=== PATIENT | male | born 1955 | race Caucasian/White ===

== ENCOUNTER 2019-07-08 16:52 | Emergency (ER) | payer OTHER ==
--- OUTSIDE RECORDS SUMMARY | 2019-07-08 16:54 | XMS REPORT ---
:1955 Author Organization eClinicalWorks Care Team Providers Name Role Phone Rangel, Na Provider Role Unavailable Allergies, Adverse Reactions, Alerts Substance Reaction Event Type codeine Info Not Available Drug Allergy Problems Problem Type Condition Code Onset Dates Condition Status Problem Anxiety F41.9 Active Problem History of kidney stones Z87.442 Active Problem Over weight E66.3 Active Problem Benign paroxysmal positional H81.11 Active vertigo of right ear Assessment HTN (hypertension) I10 Active Problem Decreased hearing of both ears H91.93 Active Assessment Pure hypercholesterolemia E78.00 Active Assessment Paroxysmal a-fib I48.0 Active Problem Impacted cerumen, left ear H61.22 Active Problem Depression with anxiety F41.8 Active Problem Screening PSA (prostate specific Z12.5 Active antigen) Problem Irritable bowel syndrome with K58.0 Active diarrhea Problem Blood tests for routine general Z00.00 Active physical examination Problem Pure hypercholesterolemia E78.00 Active Problem Paroxysmal a-fib I48.0 Active Assessment Depression with anxiety F41.8 Active Problem Snoring R06.83 Active Problem Fatigue R53.83 Active Problem 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 70461251193 50 MG Orally Active 1 tablet as Once a day needed Betapace [facility] 36307574761 80 MG Active TAKE 1 TABLET BY MOUTH TWICE A DAY Flomax [facility] 69671079395 0.4 MG Orally Active 1 capsule Once a day Lexapro [facility] 69877181947 10 MG Orally Active 1 tablet Once a day Simvastatin [facility] 25575994679 40 MG Active TAKE 1 TABLET BY MOUTH EVERY DAY Xarelto [facility] 45643433318 20 MG Active TAKE 1 TABLET BY MOUTH EVERY DAY Lexapro [facility] 84655607117 20 MG Orally Active 1 tablet Once a day Lexapro [facility] 48007323197 10 MG Active TAKE 1 TABLET BY MOUTH EVERY DAY Betapace [facility] 63347852459 80 MG Active TAKE 1 TABLET BY MOUTH TWICE A DAY Results No Known Results Summary Purpose eClinicalWorks Submission
--- OUTSIDE RECORDS SUMMARY | 2019-07-08 16:54 | XMS REPORT ---
:1955 Author Organization eClinicalWorks Care Team Providers Name Role Phone Rangel, Na Provider Role Unavailable Allergies, Adverse Reactions, Alerts Substance Reaction Event Type codeine Info Not Available Drug Allergy Problems Problem Type Condition Code Onset Dates Condition Status Assessment Needs flu shot Z23 Active Assessment Screening PSA (prostate specific Z12.5 Active antigen) Assessment Anesthesia of skin R20.0 Active Assessment Paresthesia of skin R20.2 Active Assessment Paroxysmal a-fib I48.0 Active Problem Anxiety F41.9 Active Assessment Pure hypercholesterolemia E78.00 Active Problem Over weight E66.3 Active Assessment HTN (hypertension) I10 Active Problem History of kidney stones Z87.442 Active Problem Depression with anxiety F41.8 Active Problem Screening PSA (prostate specific Z12.5 Active antigen) Problem Adult general medical examination Z00.00 Active Problem Benign paroxysmal positional H81.11 Active vertigo of right ear Assessment Adult general medical examination Z00.00 Active Problem Paresthesia of skin R20.2 Active Assessment Depression with anxiety F41.8 Active Problem Irritable bowel syndrome with K58.0 Active diarrhea Problem Blood tests for routine general Z00.00 Active physical examination Problem Impacted cerumen, left ear H61.22 Active Problem Decreased hearing of both ears H91.93 Active Problem Personal history of other malignant Z85.038 Active neoplasm of large intestine Problem Other hyperlipidemia E78.4 Active Problem Pure hypercholesterolemia E78.00 Active Problem Paroxysmal a-fib I48.0 Active Problem HTN (hypertension) I10 Active Problem Sexual dysfunction R37 Active Problem Snoring R06.83 Active Problem Fatigue R53.83 Active Medications Medication Code Code Instructions Start End Status Dosage System Date Date Viagra [facility] 73169377083 50 MG Orally Active 1 tablet Once a day as needed Flomax [facility] 19677538131 0.4 MG Orally Active 1 capsule Once a day Betapace [facility] 71435611070 80 MG Inactive TAKE 1 TABLET BY MOUTH TWICE A DAY Lexapro [facility] 00242437605 10 MG Active TAKE 1 TABLET BY MOUTH EVERY DAY Xarelto [facility] 05249045436 20 MG Active TAKE 1 TABLET BY MOUTH EVERY DAY Lexapro [facility] 28327099274 10 MG Orally Active 1 tablet Once a day Simvastatin [facility] 15175022295 40 MG Active TAKE 1 TABLET BY MOUTH EVERY DAY Results No Known Results Immunizations Vaccine Administration Date Afluria single dose Mar 16, 2019 Summary Purpose eClinicalWorks Submission
[2019-07-08 17:29] LABS: Absolute Lymphocytes (CBC) 3.1 K/uL (0.7-4.9); Hematocrit 43.8 % (39.6-49.0); Lymphocytes % 30.6 % (15.3-44.8); MPV 7.7 fL (7.6-11.3); RBC Red Blood Cell Count 4.83 M/uL (4.33-5.43)
[2019-07-08 17:31] LABS: Protime INR 1.09
--- NOTE | 2019-07-08 17:32 | RAD REPORT ---
EXAM DESCRIPTION: RAD - Chest Single View - 07/08/2019 5:25 pm CLINICAL HISTORY: PALPITATIONS Chest pain. COMPARISON: Abdomen 1 View (KUB) dated 05/10/2017; Chest Single View dated 12/30/2015 FINDINGS: Portable technique limits examination quality. The lungs are grossly clear. The heart is normal in size. No displaced fractures. IMPRESSION: No acute intrathoracic process suspected.
[2019-07-08] MEDS ORDERED: MIDAZOLAM HCL 2 MG/2 ML INJ ONE (17:33)
[2019-07-08] MEDS ORDERED: FENTANYL CITR 100 MCG/2 ML ONE (17:33)
[2019-07-08] MEDS ORDERED: NA CHLORIDE 0.9% 1,000 ML ONE (17:38)
[2019-07-08 17:55] LABS: ALT/SGPT 30 U/L (12-78); AST/SGOT 23 U/L (15-37); Albumin 3.8 g/dL (3.4-5.0); Alkaline Phosphatase 93 U/L (45-117); BUN Blood Urea Nitrogen 18 mg/dL (7-18); Bicarbonate 25 mmol/L (21-32); Bilirubin Direct 0.1 mg/dL (0-0.2); Bilirubin Total 0.4 mg/dL (0.2-1.0); Glucose Level 139 mg/dL (74-106); Magnesium 2.1 mg/dL (1.8-2.4); NT PRO-BNP 232 pg/mL (<125); Potassium 3.7 mmol/L (3.5-5.1); Protein, Total 7.2 g/dL (6.4-8.2); Sodium Level 141 mmol/L (136-145); Troponin (Emerg Dept Use Only) < 0.02 ng/mL (0.0-0.045)
[2019-07-08] MEDS ORDERED: ENOXAPARIN 100 MG/ML SYR SQ ONE (18:06)
--- NOTE | 2019-07-08 19:09 | ER ---
Nurse's Notes [facility] Name: Kip Moseley Age: 64 yrs Sex: Male : 1955 Arrival Date: 07/08/2019 Time: 16:55 Bed 4 Private MD: Diagnosis: Atrial fibrillation and flutter-with RVR Presentation: 07/07 17:06 Chief complaint: Patient states: Around 2pm today my heart rate started to go up upto ca1 145. Reports SOB, weakness, and chest tightness. History of Afib, reports ablation done in January 2019. Coronavirus screen: Patient denies fever greater than 100.4F, cough, shortness of breath, or difficulty breathing. Proceed with normal triage process. Ebola Screen: Patient negative for fever greater than or equal to 101.5 degrees Fahrenheit, and additional compatible Ebola Virus Disease symptoms Patient denies exposure to infectious person. Patient denies travel to an Ebola-affected area in the 21 days before illness onset. No symptoms or risks identified at this time. Initial Sepsis Screen: Does the patient meet any 2 criteria? No. Patient's initial sepsis screen is negative. Does the patient have a suspected source of infection? No. Patient's initial sepsis screen is negative. Risk Assessment: Do you want to hurt yourself or someone else? Patient reports no desire to harm self or others. Onset of symptoms was July 08, 2019 at 14:00. 17:06 Method Of Arrival: Wheelchair ca1 17:06 Acuity: CLEVE 2 ca1 Historical: - Allergies: 17:09 Codeine; ca1 17:09 Phenobarbital; ca1 - PMHx: 17:09 a-fib; colon cancer; Hyperlipidemia; Hypertension; Myocardial infarction; ca1 - PSHx: 17:09 colon; Hernia repair; ca1 - Immunization history:: Adult Immunizations up to date, Flu vaccine is up to date. - Social history:: Smoking status: Reported history of juuling and/or vaping. Screenin:10 Abuse screen: Denies threats or abuse. Nutritional screening: No deficits noted. em Tuberculosis screening: No symptoms or risk factors identified. Fall Risk None identified. Assessment: 17:10 General: Appears in no apparent distress. comfortable, Behavior is calm, cooperative, em appropriate for age, Denies fever, irregular heart rate started at 1400. Pain: Complains of pain in chest Pain does not radiate. Pain currently is 1 out of 10 on a pain scale. Quality of pain is described as pressure, Pain began 3 hours ago. Neuro: Level of Consciousness is awake, alert, obeys commands, Oriented to person, place, time, situation, Appropriate for age. Cardiovascular: Reports palpitations, Denies nausea, shortness of breath, syncope, Capillary refill < 3 seconds Patient's skin is warm and dry. Rhythm is atrial fibrillation with rapid ventricular response. Respiratory: Airway is patent Respiratory effort is even, unlabored, Respiratory pattern is regular, symmetrical. GI: Patient currently denies nausea, vomiting. Derm: Skin is intact, is healthy with good turgor, Skin is pink, warm \T\ dry. Musculoskeletal: Capillary refill < 3 seconds, Range of motion: intact in all extremities. 18:00 Reassessment: Patient appears in no apparent distress at this time. rhythm unchanged em after procedure, pt sedated, respirations 20 even and unlabored, skin pink warm and dry. 18:40 Reassessment: Patient and/or family updated on plan of care and expected duration. Pain em level reassessed. Patient is alert, oriented x 3, equal unlabored respirations, skin warm/dry/pink. converted to sinus rhythm Patient states symptoms have improved. 19:25 Reassessment: Patient appears in no apparent distress at this time. Patient is alert, rr5 oriented x 3, equal unlabored respirations, skin warm/dry/pink. discharge instruction given and explained without complaints made. 19:25 Neuro: Level of Consciousness is awake, alert, obeys commands, Oriented to person, rr5 place, time, situation. Cardiovascular: Capillary refill < 3 seconds Patient's skin is warm and dry. Respiratory: Airway is patent Respiratory effort is even, unlabored, Respiratory pattern is regular, symmetrical. Vital Signs: 17:06 BP 105 / 94; Pulse 145; Resp 18 S; Temp 97.3(TE); Pulse Ox 97% on R/A; Weight 106.59 kg ca1 (R); Height 6 ft. 1 in. (185.42 cm) (R); 18:40 BP 122 / 85; Pulse 87 MON; Resp 18; Pulse Ox 98% on R/A; em 19:20 BP 121 / 75; Pulse 80; Resp 16; Temp 98; Pulse Ox 99% ; rr5 17:06 Body Mass Index 31.00 (106.59 kg, 185.42 cm) ca1 18:40 Sinus Rhythm em ED Course: 16:55 Patient arrived in ED. ag5 17:02 [facility] jr8 17:03 Tyrese Villavicencio MD is Attending Physician. jr8 17:03 Tony Mendoza, RN is Primary Nurse. em 17:09 Triage completed. ca1 17:09 Arm band placed on right wrist. ca1 17:10 Patient has correct armband on for positive identification. Placed in gown. Bed in low em position. Call light in reach. Side rails up X2. Adult w/ patient. shelter monitor on. Pulse ox on. NIBP on. 17:15 Initial lab(s) drawn, by me, sent to lab. Inserted saline lock: 20 gauge in left em forearm, using aseptic technique. Blood collected. 17:19 EKG done, by ED staff, reviewed by Dmitriy SWANSON. em1 17:28 XRAY Chest (1 view) In Process Unspecified. EDMS 17:30 Oxygen administration via nasal cannula \T\ 2L/min. em 17:40 Assist provider with cardioversion (synchronized) with pads, for treatment of A fib em with 200 joules x 4. Set up for procedure. Performed by Dmitriy SWANSON Monitored with cardiac catheterization technician, pulse ox, Post procedure rhythm is unchanged. Patient tolerated well. 19:05 Juma Sherman MD is Referral Physician. jr8 19:20 IV discontinued, intact, bleeding controlled, No redness/swelling at site. Pressure rr5 dressing applied. Administered Medications: 17:30 Drug: NS 0.9% 1000 ml Route: IV; Rate: 1 bolus; Site: left forearm; em 17:38 Drug: fentaNYL (PF) 75 mcg Route: IVP; Site: left forearm; em 17:39 Drug: Versed 2 mg Route: IVP; Site: left forearm; em 17:42 Drug: Versed 2 mg Route: IVP; Site: left forearm; em 17:47 Drug: Versed 2 mg Route: IVP; Site: left forearm; em 17:58 Not Given (Physician Discretion): Metoprolol 5 mg IVP once; Hold for SBP <100 or HR <60.em 18:05 Drug: Lovenox 1 mg/kg Route: Sub-Q; Site: abdomen; em Outcome: 19:06 Discharge ordered by . ryan 19:25 Discharged to home via wheelchair. rr5 19:25 Condition: stable rr5 19:25 Discharge instructions given to patient, Instructed on discharge instructions, follow up and referral plans. medication usage, Demonstrated understanding of instructions, follow-up care, medications, Prescriptions given X 1. 19:27 Patient left the ED. rr5 Signatures: Dispatcher [employer] Tony Morrison, RN RN Singh Denney1 Dmitriy Latif PA PA jr8 Roque, Raymond, RN RN rr5 Bridgett Villarreal RN RN Carly Connolly [facility]
--- NOTE | 2019-07-08 19:11 | EDPHYS ---
Physician Documentation [facility] Name: Kip Moseley Age: 64 yrs Sex: Male : 1955 Arrival Date: 07/08/2019 Time: 16:55 Bed 4 Private MD: ED Physician Tyrese Villavicencio HPI: 07/07 18:09 This 64 yrs old Male presents to ER via Wheelchair with complaints of jr8 Irregular Pulse. 19:06 The patient presents with a history of irregular heart beat, heart racing. Context: The jr8 symptoms occur at rest. Onset: The symptoms/episode began/occurred acutely, today. Duration: The patient or guardian reports a single episode, that is still ongoing. Modifying factors: The symptoms are aggravated by nothing. The symptoms are alleviated by nothing. Associated signs and symptoms: Pertinent positives: chest pain, SOB. Severity of symptoms: At their worst the symptoms were moderate in the emergency department the symptoms are unchanged. The patient has experienced a previous episode. The patient has not recently seen a physician. History of Atrial fib in past with ablation. Stated that he has been fine until about 2 pm today. Jupiter himself go back into atrial fib and now it is racing . Historical: - Allergies: 17:09 Codeine; ca1 17:09 Phenobarbital; ca1 - PMHx: 17:09 a-fib; colon cancer; Hyperlipidemia; Hypertension; Myocardial infarction; ca1 - PSHx: 17:09 colon; Hernia repair; ca1 - Immunization history:: Adult Immunizations up to date, Flu vaccine is up to date. - Social history:: Smoking status: Reported history of juuling and/or vaping. ROS: 19:06 Eyes: Negative for injury, pain, redness, and discharge, ENT: Negative for injury, jr8 pain, and discharge, Neck: Negative for injury, pain, and swelling, Abdomen/GI: Negative for abdominal pain, nausea, vomiting, diarrhea, and constipation, Back: Negative for injury and pain, MS/Extremity: Negative for injury and deformity, Skin: Negative for injury, rash, and discoloration, Neuro: Negative for headache, weakness, numbness, tingling, and seizure. 19:06 Cardiovascular: Positive for chest pain, palpitations. 19:06 Respiratory: Positive for shortness of breath. Exam: 19:06 Eyes: Pupils equal round and reactive to light, extra-ocular motions intact. Lids and jr8 lashes normal. Conjunctiva and sclera are non-icteric and not injected. Cornea within normal limits. Periorbital areas with no swelling, redness, or edema. ENT: Nares patent. No nasal discharge, no septal abnormalities noted. Tympanic membranes are normal and external auditory canals are clear. Oropharynx with no redness, swelling, or masses, exudates, or evidence of obstruction, uvula midline. Mucous membranes moist. Neck: Trachea midline, no thyromegaly or masses palpated, and no cervical lymphadenopathy. Supple, full range of motion without nuchal rigidity, or vertebral point tenderness. No Meningismus. Respiratory: Lungs have equal breath sounds bilaterally, clear to auscultation and percussion. No rales, rhonchi or wheezes noted. No increased work of breathing, no retractions or nasal flaring. Abdomen/GI: Soft, non-tender, with normal bowel sounds. No distension or tympany. No guarding or rebound. No evidence of tenderness throughout. Back: No spinal tenderness. No costovertebral tenderness. Full range of motion. Skin: Warm, dry with normal turgor. Normal color with no rashes, no lesions, and no evidence of cellulitis. MS/ Extremity: Pulses equal, no cyanosis. Neurovascular intact. Full, normal range of motion. Neuro: Awake and alert, GCS 15, oriented to person, place, time, and situation. Cranial nerves II-XII grossly intact. Motor strength 5/5 in all extremities. Sensory grossly intact. Cerebellar exam normal. Normal gait. 19:06 Cardiovascular: Rate: tachycardic, Rhythm: irregularly irregular, Pulses: Pulses are 2+ in right radial artery and left radial artery. Heart sounds: murmur, not appreciated, Edema: is not appreciated, JVD: is not appreciated. 19:06 ECG was reviewed by the Attending Physician. Vital Signs: 17:06 BP 105 / 94; Pulse 145; Resp 18 S; Temp 97.3(TE); Pulse Ox 97% on R/A; Weight 106.59 kg ca1 (R); Height 6 ft. 1 in. (185.42 cm) (R); 18:40 BP 122 / 85; Pulse 87 MON; Resp 18; Pulse Ox 98% on R/A; em 19:20 BP 121 / 75; Pulse 80; Resp 16; Temp 98; Pulse Ox 99% ; rr5 17:06 Body Mass Index 31.00 (106.59 kg, 185.42 cm) ca1 18:40 Sinus Rhythm em Procedures: 18:06 Cardioversion: (synchronized) for treatment of A fib, with 200 joules X 4. Post jr8 procedure rhythm is unchanged, the patient tolerated the procedure well. Moderate sedation: Pre-procedure assessment: the patient has been NPO 4 hour(s) prior to arrival, ASA physical classification: III - organic disease with definite functional impairment, Airway assessment: able to hyperextend neck, able to maintain airway, can open mouth without difficulty, Mallampati classification of tongue size: II - faucial pillars and soft palate can be visualized, but uvula is masked by the base of the tongue, Monitoring during procedure: dress cap maker, continuous pulse oximetry, nurse at bedside at all times, Medications employed: Fentanyl, 100 mcg(s), Versed, 6 mg(s), Post-procedure assessment: the patient is moderately sedated, Rosales sedation score: 5 - sluggish response to a light glabellar tap, Respiratory status: even and unlabored, a reversal agent was not used. MDM: 17:03 Patient medically screened. [facility] 18:06 ED course: Unable to cardiovert patient out of Atrial Fib with RVR. Whit consulted jr8 and wants to start him on Metoprolol 50 mg BID with xarelto. Will see him in office tomorrow if able to be discharged . 19:05 Data reviewed: vital signs, nurses notes, lab test result(s), EKG, radiologic studies, [facility] plain films. Data interpreted: Pulse oximetry: on room air is 98 %. Interpretation: normal. Counseling: I had a detailed discussion with the patient and/or guardian regarding: the historical points, exam findings, and any diagnostic results supporting the discharge/admit diagnosis, lab results, radiology results, the need for outpatient follow up, a seed cleaning machine operator, to return to the emergency department if symptoms worsen or persist or if there are any questions or concerns that arise at home. ED course: Patient converted out of Atrial fib to Sinus rhythm. Will d/c home on Metoprolol and hold xarelto for time being . 07/07 17:11 Order name: Basic Metabolic Panel; Complete Time: 18:06 07/07 17:11 Order name: CBC with Diff; Complete Time: 17:34 07/07 17:11 Order name: LFT's; Complete Time: 18:06 07/07 17:11 Order name: Magnesium; Complete Time: 18:06 07/07 17:11 Order name: NT PRO-BNP; Complete Time: 18:06 07/07 17:11 Order name: PT-INR; Complete Time: 17:34 07/07 17:11 Order name: Troponin (emerg Dept Use Only); Complete Time: 18:06 07/07 17:11 Order name: XRAY Chest (1 view); Complete Time: 18:07/07 17:11 Order name: EKG; Complete Time: 17:13 07/07 17:11 Order name: Cardiac monitoring; Complete Time: 17:19 07/07 17:11 Order name: EKG - Nurse/Tech; Complete Time: 17:19 07/07 17:11 Order name: IV Saline Lock; Complete Time: 18:22 07/07 17:11 Order name: Labs collected and sent; Complete Time: 18:22 07/07 17:11 Order name: O2 Per Protocol; Complete Time: 18:07/07 17:11 Order name: O2 Sat Monitoring; Complete Time: 18:22 07/07 17:11 Order name: Conscious Sedation; Complete Time: 18:18 jr8 EC:06 Rate is 145 beats/min. Rhythm is irregularly irregular, A fib. QRS Burden is Normal. QRS jr8 interval is normal. QT interval is normal. No Q waves. T waves are Normal. No ST changes noted. Clinical impression: Atrial Fibrillation. Interpreted by me. Reviewed by me. Administered Medications: 17:30 Drug: NS 0.9% 1000 ml Route: IV; Rate: 1 bolus; Site: left forearm; em 17:38 Drug: fentaNYL (PF) 75 mcg Route: IVP; Site: left forearm; em 17:39 Drug: Versed 2 mg Route: IVP; Site: left forearm; em 17:42 Drug: Versed 2 mg Route: IVP; Site: left forearm; em 17:47 Drug: Versed 2 mg Route: IVP; Site: left forearm; em 17:58 Not Given (Physician Discretion): Metoprolol 5 mg IVP once; Hold for SBP <100 or HR <60.em 18:05 Drug: Lovenox 1 mg/kg Route: Sub-Q; Site: abdomen; em Disposition: 07/08 07:09 Co-signature as Attending Physician, Tyrese Villavicencio MD I agree with the assessment and kdr plan of care. Disposition: 07/08/19 19:06 Discharged to Home. Impression: Atrial fibrillation and flutter - with RVR. - Condition is Stable. - Discharge Instructions: Atrial Fibrillation. - Prescriptions for Metoprolol Tartrate 50 mg Oral Tablet - take 1 tablet by ORAL route 2 times per day take with meal; 20 tablet. - Medication Reconciliation Form, Thank You Letter, Antibiotic Education, Prescription Opioid Use form. - Follow up: Juma Sherman MD; When: Tomorrow; Reason: Recheck today's complaints, Continuance of care, Re-evaluation by your physician. - Problem is new. - Symptoms have improved. Critical care time excluding procedures: 07/07 19:13 Critical care time: Bedside Care: 20 minutes, Consultation: 10 minutes, Family jr8 Intervention: 5 minutes. Total time: 35 minutes Signatures: Dispatcher [employer] Tyrese Wright MD MD [facility] Tony Mendoza RN RN Dmitriy Latif PA PA jr8 Liang Borjas RN RN rr5 Bridgett Villarreal RN RN ca1 Corrections: (The following items were deleted from the chart) 19:06 07/08/2019 19:06 Discharged to Home. Impression: Atrial fibrillation and flutter rr5 - with RVR. Condition is Stable. Forms are Medication Reconciliation Form, Thank You Letter, Antibiotic Education, Prescription Opioid Use. Follow up: Juma Sherman; When: Tomorrow; Reason: Recheck today's complaints, Continuance of care, Re-evaluation by your physician. Problem is new. Symptoms have improved. jr8
--- NOTE | 2019-07-09 11:21 | EKG ---
Test Date: 2019-07-08 Test Time: 18:43:58 [employer] [place]: SOPHIE MEASUREMENT RESULTS: Intervals: Rate: 86 KS: 160 QRSD: 84 QT: 400 QTc: 478 [place]: P: 38 KS: 160 QRS: -27 T: 42 INTERPRETIVE STATEMENTS: Normal sinus rhythm Normal ECG Electronically Signed On 07-09-19 11:20:18 CDT by Juma Sherman
--- NOTE | 2019-07-09 11:22 | EKG ---
Test Date: 2019-07-08 Test Time: 17:08:30 Assessment Counselor: SOPHIE MEASUREMENT RESULTS: Intervals: Rate: 147 [place]: QRSD: 80 QT: 308 QTc: 482 [place]: P: [place]: QRS: -39 T: 58 INTERPRETIVE STATEMENTS: Atrial fibrillation with rapid ventricular response Left axis deviation Abnormal ECG Compared to ECG 12/31/2015 05:49:56 Left-axis deviation now present Sinus rhythm no longer present Electronically Signed On 07-09-19 11:20:22 CDT by Juma Sherman
--- NOTE | 2019-07-09 11:22 | EKG ---
Test Date: 2019-07-08 Test Time: 17:58:39 Pathology Laboratory Aide: SOPHIE MEASUREMENT RESULTS: Intervals: Rate: 119 [place]: QRSD: 82 QT: 444 QTc: 624 [place]: P: [place]: QRS: -16 T: -41 INTERPRETIVE STATEMENTS: Atrial fibrillation with rapid ventricular response with premature ventricular or aberrantly conducted complexes Nonspecific ST and T wave abnormality, probably digitalis effect Abnormal ECG Compared to ECG 07/08/2019 17:08:30 Ventricular premature complex(es) now present ST (T wave) deviation now present Left-axis deviation no longer present Electronically Signed On 07-09-19 11:20:19 CDT by Juma Sherman
== END 2019-07-08 19:27 | disposition home or self-care (01) ==
LOC: ER 16:52
PROC: 5A2204Z Restoration of Cardiac Rhythm, Single (ICD-10-PCS; principal; 2019-07-08)
DX: I48.20 Chronic atrial fibrillation, unspecified (principal); I48.92 Unspecified atrial flutter; I10 Essential (primary) hypertension; Z85.038 Personal history of other malignant neoplasm of large intestine; Z88.5 Allergy status to narcotic agent
CPT/HCPCS: 92960; 93005 ×3; 85025; 80048; 36415; 83735; 85610; 80076; 84484; 83880; 71045; 96375; 96372; 96374; 99291; J2250; J3010; J1650; J7030